=== PATIENT | female | born 1955 | race Caucasian/White ===

== ENCOUNTER 2025-08-23 11:52 | Outpatient (AMB) | payer MEDICARE, MEDICAID, SELFPAY ==
--- NOTE | 2025-08-23 11:58 | A.OFFVIS_ITS ---
Intake Visit Reasons: 6m PD Allergies gemfibrozil (From Lopid) Allergy (Unknown, Verified 08/23/25 11:58) Unknown pravastatin Allergy (Unknown, Verified 08/23/25 11:58) Unknown simvastatin (From Zocor) Allergy (Unknown, Verified 08/23/25 11:58) Unknown Medication List - Last Reconciled 08/23/25 by Janice Spear CNP carbidopa-levodopa 25-100 mg 1 tab PO TID carbidopa-levodopa 50-200 mg ER 1 tab PO BEDTIME ezetimibe 10 mg PO DAILY lorazepam 1 mg PO DAILY PRN olanzapine 5 mg PO BEDTIME olanzapine 10 mg PO BEDTIME omeprazole 20 mg PO DAILY trazodone 25 mg PO BEDTIME PRN HPI Comments Details: 69-year-old woman with underlying diagnosis of developmental delay and bipolar disorder, probably treated with antipsychotic drugs for number of years, was here for parkinsonian symptoms. She had fall in 08/2024 that resulted in C1-2 fracture and was in cervical collar until 12/2024. She was doing okay. Balance was unsteady and she was walking some with assistance from staff members, no recent falls. Tremors were stable. Staff was concerned she was not sleeping at night as she was tired and wanted to sleep longer in the morning. No behaviors at night. She apparently had two home sleep studies that showed she was sleeping at night. Trazodone and morning dose of olanzapine reduced without any change in morning symptoms. [facility] Medical History (Updated 08/23/25 @ 12:03 by Janice Spear CNP) Psychotic disorder Eczema Constipation Hypertension Hyperlipidemia Osteoporosis Anxiety Depression Bipolar disorder Review of Systems Const Denies chills, Denies daytime sleepiness, Denies difficulty sleeping, Denies fatigue, Denies fever(s), Denies frequent falls, Denies headache(s), Denies increased appetite, Denies poor appetite, Denies snoring, Denies weakness, Denies weight gain and Denies weight loss Eyes Denies loss of vision ENT Denies vertigo, Denies dizziness and Denies headache(s) Card Denies chest pain at rest, Denies chest pain with activity, Denies syncope, Denies leg edema and Denies palpitations Resp Denies snoring GI Denies constipation, Denies heartburn, Denies diarrhea and Denies nausea Denies urinary frequency, Denies urinary incontinence and Denies urinary urgency Musc Reports abnormal gait (balance difficulty), Denies numbness and Denies tingling Skin/Breast Denies dry skin and Denies rash Neuro Reports abnormal gait (balance difficulty), Denies vertigo, Denies dizziness, Denies syncope, Denies frequent falls, Denies headache(s), Reports lack of coordination, Denies loss of vision, Denies memory loss, Denies numbness, Denies restless legs, Denies seizure-like activity, Denies tingling, Denies paresthesias, Denies tremor(s) and Denies weakness Psych Denies anxiety, Denies depression, Denies auditory hallucinations, Denies memory loss, Denies visual hallucinations and Denies suicidal ideation Endo Denies fatigue and Denies palpitations Physical Exam Const Other: General Appearance:? normal, in no acute distress. Skin:? no rashes, no significant birthmarks. Heart:? S1, S2 normal, no murmurs. Lungs:? clear anteriorly and posteriorly. Extremities:? no edema. Psych:? alert, minimally cooperative. Neuro Other: Mental Status:?Alert, minimally cooperative. Did not answer questions. Cranial Nerves:?Eyes deviated to left. Face is symmetrical. Facial sensations are normal. Tongue is midline. Palate elevates symmetrically. Shoulder shrugging is normal. Hearing to bedside conversation is normal. Motor Examination:?DTRs trace. Sensory Exam:?....? Coordination:?No ataxia,?no titubation.? Gait Exam: In wheelchair. Cerebellar Signs:?[id number] is okay. Extrapyramidal System:?Generalized bradykinesia. Pronator Drift:?Not present.? Involuntary Movements:?Mild resting tremors of the hands seen. Speech:?Normal.? Results Reviewed Results Reviewed: CT brain WO at [facility] in 2007: OK EEG at off in Oct 2022: mild L FC dysfunction Assessment & Plan Assessment & Plan (1) Parkinsonism: Code(s): G20 - Parkinson's disease Category: Medical Qualifiers: Parkinsonism type: unspecified Qualified Code(s): G20 - Parkinson's disease Plan: Continue carbidopa-levodopa 25-100mg 1 tablet three times a day (at 7am, 11am, and 3pm). Continue carbidopa-levodopa ER 50-200mg 1 tablet daily. (2) Chronic static encephalopathy: Code(s): G93.49 - Other encephalopathy Category: Medical Plan: Sleep study report not available for review at this time. Encouraged to maintain regular sleep schedule/routine, get out of bed at same time every morning and get into bed at same time every night. Keep room bright and well lit during the day (open shades, turn on lights). Medications: New carbidopa-levodopa 25-100 mg 1 tab PO TID 90 tabs 5RF 30 days carbidopa-levodopa 50-200 mg ER 1 tab PO DAILY 30 tabs 5RF 30 days Coding Level of Care Code Est Pt Level 4 (49102) Diagnoses Parkinsonism, unspecified Parkinsonism type G20 Parkinsonism type: unspecified Chronic static encephalopathy G93.49
--- OUTSIDE RECORDS SUMMARY | 2025-08-23 15:15 | XMS_ITS | Clinical Summary ---
Author Organization [place] [address] [address] [facility] Building Address [address] [place] [phone] Phone Care Team Providers Care Tempering Oven Operator Name Role Phone Physician, No Pcp Primary Care Provider Unavaila ble Allergies Active Allergy Reactions Criticality Noted Date Comments Gemfibrozil 12/21/2024 Lovastatin 02/13/2022 Other Rash 02/13/2022 Pravastatin 11/29/2013 Simvastatin 11/29/2013 Medications Thera-M 27-0.4 mg tablet Take 1 tablet by mouth once daily in the morning (for vitamin/minera l supplement) 30 tablet 4 Active multivitamin-iron -minerals-folic acid (Thera-M) 27-0.4 mg tablet Take 1 tablet by mouth. 3 Active calcium carbonate 1,500 mg (600 mg elemental calcium) tablet Take 1 tablet (600mg) by mouth twice daily (i/c calcium carbonate) (for mineral supplement) 60 tablet 2 5 Active LORazepam (ATIVAN) 2 mg tablet Take 1 tab by mouth 2 hours prior to procedures (dental ,medical) to produce drowsiness. Active loratadine (CLARITIN) 10 mg tablet Take 1 tablet (10 mg total) by mouth 1 (one) time each day if needed for allergies. Active omega-3 fatty acids-fish oil 300-500 mg capsule Take 1 capsule (500mg) by mouth once daily 4 Active cholecalciferol (VITAMIN D-3) 25 mcg (1,000 unit) capsule Take 1 capsule (1,000 Units total) by mouth 1 (one) time each day. TAKE 1 CAPSULE (1000 UNITS) BY MOUTH EVERY MORNING (FOR VITAMIN SUPPLEMENT 4 Active bacitracin 500 unit/gram ointment Apply small amount topically to affected areas twice daily as needed to open areas. apply until resolved 4 Active acetaminophen (TYLENOL) 325 mg tablet Take 2 tablet2 (650mg) by mouth every 6 hours as needed for signs of discomfort (hitting, screaming, unchanged agitation, comfort measures) or temp over 101f, up to 10 days. nte 3000mg/24 hours. call md if not resolved in 3 days 4 Active carbamide peroxide (Ear Drops, carbamide peroxide,) 6.5 % otic solution Instill 5 drops in both ears twice daily x5 days as needed for excess earwax. tilt head so ear to be treated points towards ceiling. hold medication in ear using part of a cotton ball 4 Active hydrocortisone 2.5 % cream Apply sparingly topically to affected area(s) twice daily as needed for eczema 4 Active dimethicone (CERAVE BABY MOISTURIZING TOP) Apply topically to skin once daily after bath 4 Active ibuprofen (ADVIL,MOTRIN) 200 mg tablet Take 2 tablets (400mg) by mouth every 6 hours as needed for pain. not to exceed 4 doses/24 hours. call hcp if not resolved in 3 days 4 Active multivit-min/iron fum/folic ac (THERA-M ORAL) Take 1 tablet by mouth once daily in the morning (for vitamin/minera l supplement) 4 Active omeprazole (PriLOSEC) [address] capsule Take 1 capsule (20mg) by mouth once daily in the morning (for gerd) 4 Active polyethylene glycol (PEG) 17 gram/dose oral powder Take 17 g by mouth every other day. Mix 17 grams(measure to line in cap) in 8oz of water or juice in the morning(for constipation) 4 Active carbidopa-levodop a CR (SINEMET CR) 50-200 mg per CR tablet Take 1 tablet by mouth 2 (two) times a day. Active LORazepam (ATIVAN) 0.5 mg tablet Take 1 tablet (0.5 mg total) by mouth as needed. Max Daily Amount: 0.5 mg Active p.glycol algin/polysorbate s ( CARE PRODUCTS TOP) Apply topically. Active terbinafine (LamISIL) 1 % cream Apply topically 2 times daily as needed. 3 Active ceramides cream (CeraVe) cream moisturizing cream Apply to skin after bath qd 3 Active mupirocin (BACTROBAN) 2 % ointment Apply three times a day for a week 3 Active carbidopa-levodop a (SINEMET) 25-100 mg per tablet Take 1 tablet by mouth 3 (three) times a day. Active diclofenac (VOLTAREN) 1 % topical gel Apply 4 g topically 2 (two) times a day. To left ankle as needed for pain 2 Active sodium phosphates (Fleet Enema Extra) 19-7 gram/[address] 1 Each rectally See Admin Instructions. Use 1 rectally as needed if no BM in 4 days 0 Active LORazepam (ATIVAN) 1 mg tablet Take 1 mg by mouth daily. At 4:00 pm Active OLANZapine (ZyPREXA) 10 mg tablet Take 1 tablet (10 mg total) by mouth at bedtime. 4 Active OLANZapine (ZyPREXA) 7.5 mg tablet Take 1 tablet (7.5 mg total) by mouth 1 (one) time each day in the morning. 4 Active traZODone (DESYREL) 50 mg tablet Take 1 tablet (50 mg total) by mouth at bedtime. Active liver oil-zinc oxide (DESITIN) ointment Apply topically as needed Active senna-docusate (PERICOLACE) 8.6-50 mg per tablet Take 2 tablets by mouth 2 (two) times a day if needed for constipation. 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 Had recommended either to be done in hospital under sedation or interval re-ultrasound for establishment of growth/stability. Dysphagia 07/08/2021 Overview (11/29/2024): 06/15 aspiration pneumonia; speech therapy evaluated, recommends pur ed diet with thin liquids Ground glass opacity present on imaging of lung 03/22/2019 Parkinsonism ([facility]/HCC V24, CMS/HCC V28) 03/22/20 19 Overview (11/29/2024): Dr Levine Foot drop, bilateral 07/21/2018 Developmental delay 11/29/2013 Constipation 11/29/2013 Bipolar disorder (CMS/HCC V24, [facility] V28) 01/2014 Overview (11/29/2024): Nati Gibson prescribing, at [facility] Hyperlipidemia 11/29/2013 Impaired fasting glucose 11/29/2013 Overview (11/29/2024): Per prior records Overweight 11/29/2013 Osteopenia 11/29/2013 Overview (11/29/2024): Per prior records; however, bone density normal in 2007, and in 2009 the report is difficult to read but it doesn't look too significant, apparently was on fosamax by that point Immunizations Immunization Administration Dates Next Due Diptheria & Tetanus, 6wks to less than 7yo 01/08/2001 Hepatitis B (Epofvhe-K-Lgkkt , Recombivax HB-Adult) 19yo and older 10/26/2000 IPV Inactivated polio (Ipol) 6wks and older 10/26/1969 Influenza Quadravalent, MDCK , 0.5ml, with preservative (Flucelvax) 6mo and older 08/22/2018,07/30/2017 Influenza trivalent, 0.5mL ( Fluad) 65yo and older 08/18/2022,09/03/2021,10/01/2019 Influenza trivalent, 0.5mL, preservative free (Fluarix; FluLaval; Fluzone) ages 6mo and older (Afluria) 3 years and older 07/28/2016,07/12/2015,08/12/2014,08/02,08/16/2012,08/06/2011,10/26/2000 Influenza trivalent, with pr eservative (Fluzone; Afluria) 6mo and older 08/16/2012,08/02/2009,08/13/2007 Influenza, Unspecified 08/10/2023,08/14/2010,10/2007 MMR, measles mumps and rubel la Live (Priorix; M-M-R II) 12mo and older 10/26/1969 Pneumococcal conjugate 13 va lent (Prevnar 13, PCV13) 2mo and older 11/29/2019 Pneumococcal polysaccharide 23 valent (Pneumovax 23) 2yo and older 08/18/2022,01/07/2005,10/26/2004 Smallpox 10/26/1962 Td Tetanus diptheria (Tdvax) 7yo and older 12/28/2017 Tdap Tetanus diptheria acell ular pertussis (Boostrix; Adacel) 7yo and older 12/28/2017,05/15/2011 Typhoid VICPS (Typhim Vi) 2y o and older 10/26/1967 Zoster Live 02/12/2016 Surgical History Surgery Date Site/Laterality Comments LEG SURGERY 09/2008 Left PROCEDURE: HISTORICAL LEG SURGERY; COMMENT: L distal fibula open reduction, int fixation SHOULDER SURGERY PROCEDURE: HISTORICAL SHOULDER SURGERY; COMMENT: ?deltoid ligament repair - unclear Medical History Medical History Date Comments Seizure disorder (CMS/HCC V2 4, CMS/HCC V28) 11/29/2013 DX:Seizure disorder (HCC); C OMMENT: Was on Trileptal, discontinued 09/07 as no seizures for years, apparently this had caused hyponatremia Family History Medical History Relation Name Comments Diabetes Mother Coronary artery disease Neg Hx Hypertension Neg Hx Other cancer Neg Hx Relation Name Status Comments Mother Social History Tobacco Use Types Packs/Day Years Used Date Smoking Tobacco: Never Smokeless Tobacco: Never Alcohol Use Standard Drinks/Week Comments No 0 (1 standard drink = 0.6 oz pur e alcohol) Comments Unknown Sex and Gender Information Value Date Recorded Sex Assigned at Not on file Legal Sex Female 6:42 AM EST Gender Identity Not on file Sexual Orientation Not on file Obstetrics History Last Filed Vital Signs Vital Sign Reading Time Taken Comments Blood Pressure 102/66 04/22/2024 11:55 AM EDT A Pulse 84 04/22/2024 11:55 AM EDT Temperature - - Respiratory Rate - - Oxygen Saturation - - Inhaled Oxygen Concentration - - Weight 68.5 kg (151 lb) 04/22/2024 11:55 AM EDT Height 152.4 cm (5') 04/22/2024 11:55 AM EDT Body Mass Index 29.49 04/22/2024 11:55 AM EDT Plan of Treatment Health Maintenance Due Date Last Done Comments IPV Vaccines (2 of 3 - 4-dose series) 11/23/1969 10/26/1969 Hepatitis B Vaccines (2 of 3 - 19+ 3-dose series) 11/23/2000 10/26/2000 Zoster Vaccines (2 of 3) 04/08/2016 02/12/2016 Breast Cancer Screening 01/15/2020 01/14/2018 Falls Risk Assessment 10/04/2022 Medicare Annual Wellness Visit 10/04/2022 Social Influencers of Health Screening 10/04/2022 Depression Screening 10/26/2024 Colorectal Cancer Screening: Colonoscopy 05/03/2025 05/03/2015 COVID-19 Vaccine ( season) 2025 04/08/2022, 11/30/2020, 11/05/2020 Influenza Vaccine (#1) 2025 , 08/17/2023, 08/10/2023, Additional history exists DTaP,Tdap,and Td Vaccines (5 - Td or Tdap) 12/29/2027 12/28/2017, 12/28/2017, 05/15/2011, Additional history exists Cholesterol Screening (Lipid Panel) 09/08/2028 09/08/2023 RSV Immunization Adult Patients (1 - 1-dose 75+ series) 2028 Osteoporosis Screening (Bone Density Screening) 09/04/2032 09/04/2022 MMR Vaccines Completed 10/26/1969 Hepatitis C Screening Completed 11/29/2014 Pneumococcal Vaccine: 50+ Years Completed 08/18/2022, 11/29/2019, 01/07/2005, Additional history exists HIB Vaccines Aged Out No longer eligi ble based on patient's age to complete this topic HPV Vaccines Aged Out No longer eligi ble based on patient's age to complete this topic Hepatitis A Vaccines Aged Out No long er eligible based on patient's age to complete this topic Meningococcal ACWY Vaccine Aged Out N o longer eligible based on patient's age to complete this topic Meningococcal B Vaccine Aged Out No l onger eligible based on patient's age to complete this topic RSV Immunization Patients Under 20 months Aged Out No longer eligible based on patient's age to complete this topic Varicella Vaccines Aged Out No longer eligible based on patient's age to complete this topic Procedures Procedure Name Priority Date/Time Associated Diagnosis Comments LIPID PANEL Routine 09/08/2023 DXA BONE DENSITY STUDY 1+ SITS AXIAL SKEL Routine 09/04/2022 1:24 PM EST Other specified disorders of bone density and structure, unspecified site [facility] SCREENING DIGITAL Routine 01/14/2018 4:39 PM EDT Encounter for screening mammogram for malignant neoplasm of breast COLONOSCOPY Routine 05/03/2015 HEPATITIS C SCREENING Routine 11/29/2014 from Last 3 Months or Most Recently Relevant to Health Maintenance Results * (ABNORMAL) Lipid panel (09/08/2023) LDL/HDL Ratio 6(A) 0 - 4 Triglycerides 450(A) 0 - 150 mg/dL Cholesterol 221(A) 0 - 200 mg/dL HDL 38(A) >=40 mg/dL LDL Cholesterol 93 0 - 100 mg/dL Blood Venous blood specimen / Unknown us Historical Provider LAB BLOOD ORDERABLES Graciela l Result * DXA BONE DENSITY STUDY 1+ SITS AXIAL SKEL (09/04/2022 1:24 PM EST) Anatomical Region Laterality Modality Bone Densitometr y 02/12/2022 11:1 0 AM EDT Narrative 09/05/2022 9:04 AM EST Clinical history: other osteoporosis Scans of the lumbar spine and hips were performed on a [employer] fan beam bone densitometer. Bone mineral density measurements and associated T and Z scores respectively are as follows: Lumbar Spine: L1-L4 BMD: 1.089 g/cm2 T-Score: 0.4 Z-Score: 2.4 Left Proximal Femur: Neck BMD: 0.704 g/cm2 T-Score: -1.3 Z-Score: 0.4 Total BMD: 0.941 g/cm2 T-Score: 0 Z-Score: 1.4 Compared with standards for the young adult, lowest measured bone density places the patient in the W.H.O. osteopenic range. FRAX 10 year probability of major osteoporotic fracture: 14% FRAX 10 year probability of hip fracture: 1.8% Population: [place] () IMPRESSION: IMPRESSION: Osteopenia. The NOF guidelines recommend that FDA approved medical therapies be considered in postmenopausal women and men age >50 years with a: i. Hip or vertebral (clinical or morphometric) fracture ii. T score of < -2.5 at the spine or hip iii. 10 year fracture probability by FRAX of >3% for hip fracture, or >20% for major osteoporotic fracture PLEASE NOTE: W.H.O. classification is based on lowest measured density at the spine, femoral neck, or total hip.This classification has prognostic significance when applied to post menopausal women and older men. 1) The World Health Organization defines low BMD as follows: T-score Normal at or > -1 Osteopenia < -1 and > -2.5 Osteoporosis at or < -2.5 without fractures Established osteoporosis < -2.5 with fractures Procedure Note Thalia Ireland MD - 11/30/2023 Clinical history: other osteoporosis Scans of the lumbar spine and hips were performed on a [employer] beam bone densitometer. Bone mineral density measurements and associated T and Z scoresrespectively are as follows: Lumbar Spine: L1-L4 BMD: 1.089 g/cm2 T-Score: 0.4 Z-Score: 2.4 Left Proximal Femur: Neck BMD: 0.704 g/cm2 T-Score: -1.3 Z-Score: 0.4 Total BMD: 0.941 g/cm2 T-Score: 0 Z-Score: 1.4 Compared with standards for the young adult, lowest measured bone densityplaces the patient in the W.H.O. osteopenic range. FRAX 10 year probability of major osteoporotic fracture: 14% FRAX 10 year probability of hip fracture: 1.8% Population: [place] () IMPRESSION: IMPRESSION: Osteopenia. The NOF guidelines recommend that FDA approved medical therapies beconsidered in postmenopausal women and men age >50 years with a: i. Hip or vertebral (clinical or morphometric) fracture ii. T score of < -2.5 at the spine or hip iii. 10 year fracture probability by FRAX of >3% for hip fracture, or >20%for major osteoporotic fracture PLEASE NOTE: W.H.O. classification is based on lowest measured density at the spine,femoral neck, or total hip.This classification has prognostic significance when applied to postmenopausal women and older men. 1) The World Health Organization defines low BMD as follows: T-score Normal at or > -1 Osteopenia < -1 and > -2.5 Osteoporosis at or < -2.5 withoutfractures Established osteoporosis < -2.5 with fractures Shanell Mulligan MD IMThelma DXA PROCEDURES Final Result * [facility] SCREENING DIGITAL (01/14/2018 4:39 PM EDT) Anatomical Region Laterality Modality Mammography 01/14/2018 10:0 3 AM EDT Narrative 01/14/2018 4:39 PM EDT [facility] Diagnostic Imaging Department [address] [place], [place] [id number] Patient: JOSE A MCKINNON/Age/Sex: 1955 62 - F Unit#: [id number] Location/Status: SPDIMAM/REG CLI Mnemonic/Ordering Site: [facility] Ordering Physician: ALICIA HAYDEN Yolette Screening Digital - 01/14/18 - 1028 INDICATION: Screening. Patient is wheelchair-bound. Limited evaluation of the patient. COMPARISON: Prior mammograms dating back to 2008 TECHNIQUE: Routine views of both breasts were obtained using full-field direct digital mammography. Computer Aided Detection was utilized. BREAST PARENCHYMAL COMPOSITION: The breast parenchyma is composed of scattered fibroglandular densities. (Category b density ) . FINDINGS: There is no suspicious finding within either breasts given the limitations due to motion artifacts . The axillary region is not well evaluated in the left breast. Scattered benign-appearing microcalcifications in both breasts. IMPRESSION: 1. No mammographic evidence of malignancy given the limitations of the study as described above. 2. Annual screening mammography is recommended . OVERALL FINAL ASSESSMENT: BI-RADS Assessment Category 2: Benign. PQRI CPT II 3342 F A negative mammogram in the presence of clinically suspicious palpable abnormality does not preclude the possibility of malignancy or alter the indications for biopsy. Note: Patient information entered into a reminder system with a target due date for the next mammogram: CPT II 7025F [id number] Dictating Physician: KAYCEE MIRAMONTES MD Electronically Signed by: KAYCEE MIRAMONTES MD Dic Date/Time: 01/14/18 1637 Sign date/Time: 01/14/18 1639 Procedure Note Kaycee Miramontes MD - 10/14/2022 [facility] Diagnostic Imaging Department [address] [place], [place] [id number] Patient: JOSE A MCKINNON /Age/Sex: 1955 - 62 - F Unit#: [id number] Location/Status: SPDIMAM/REG CLI Mnemonic/Ordering Site: [facility] Ordering Physician: ALICIA HAYDEN ROD PULLER Yolette Screening Digital - 01/14/18 - 1028 INDICATION: Screening. Patient is wheelchair-bound. Limited evaluation ofthe patient. COMPARISON: Prior mammograms dating back to 2008 TECHNIQUE: Routine views of both breasts were obtained using full-fielddirect digital mammography. Computer Aided Detection was utilized. BREAST PARENCHYMAL COMPOSITION: The breast parenchyma is composed ofscattered fibroglandular densities. (Category b density ) . FINDINGS: There is no suspicious finding within either breasts giventhe limitations due to motion artifacts . The axillary region is not wellevaluated in the left breast. Scattered benign-appearing microcalcifications inboth breasts. IMPRESSION: 1. No mammographic evidence of malignancy given the limitations of thestudy as described above. 2. Annual screening mammography is recommended . OVERALL FINAL ASSESSMENT: BI-RADS Assessment Category 2: Benign. PQRI CPT II 3342 F A negative mammogram in the presence of clinically suspicious palpable abnormality does not preclude the possibility of malignancy or alter the indications for biopsy. Note: Patient information entered into a reminder system with a target duedate for the next mammogram: CPT II 7025F [id number] Dictating Physician: KAYCEE MIRAMONTES MD Electronically Signed by: KAYCEE MIRAMONTES MD Dic Date/Time: 01/14/18 1637 Sign date/Time: 01/14/18 1639 us Maria Alejandra Hayden [facility]ILY PRACT[facility] MEDICAL DOCTOR IMG BI PROCEDURES Final Resul t * Hm Colonoscopy (05/03/2015) Colonoscopy Abstracted, No Interpretation Anatomical Region Laterality Modality Other Historical Provider HEALTH MAINTENANCE Final Result * Hepatitis C Screening (11/29/2014) Pathologist [facility] Hepatitis C Screening Abstracted us Historical Provider HEALTH MAINTENANCE Final Result from Last 3 Months or Most Recently Relevant to Health Maintenance Insurance MEDICARE [place]ICAID - [place] Care Teams Tempering Oven Operator Relationship Specialty Start Date End Date Physician, No Pcp PCP - General 03/10/25
== END 2025-08-23 12:24 | disposition home or self-care (01) ==
LOC: HO.HSM 11:53
PROVIDERS: PCP Family Medicine; Referring Provider Family Medicine; Visit Provider Registered Nurse
DX: G20.B1 Parkinson's disease with dyskinesia, without mention of fluctuations (principal); G93.49 Other encephalopathy
CPT/HCPCS: 99214

== ENCOUNTER → 2025-08-23 11:52 | Outpatient (BNVA) | payer MEDICARE, MEDICAID, SELFPAY | PROVIDERS: PCP Family Medicine; Referring Provider Family Medicine; Visit Provider Registered Nurse | DX: G93.49 Other encephalopathy (principal); G20.C Parkinsonism, unspecified; Z79.899 Other long term (current) drug therapy | CPT/HCPCS: 99212 ==